=== PATIENT | female | born 1985 | race Caucasian/White ===

== ENCOUNTER → 2017-02-17 | Outpatient (REF) | payer OTHER ==
[~2017-02-17] MED LIST: ACET500T37 PO; KEFL500C7 PO; MOTR200T44 PO; PRENTAB8 PO; TYLE167L PO; TYLE325T5 PO
== END ==
LOC: M SMT 13:02
PROVIDERS: ATTEND Nurse Practitioner Women's Health
DX: N13.1 Hydronephrosis with ureteral stricture, not elsewhere classified (principal)

== ENCOUNTER → 2017-02-25 | Outpatient (CLI) | payer OTHER ==
[~2017-02-25] MED LIST changes: +ISOVUE-370 76% 100ML VIAL (Q9967) As Ordered ONE
--- NOTE | 2017-02-26 07:01 | REP ---
PRE- AND POST CONTRAST CT OF THE ABDOMEN AND PELVIS: CLINICAL: Right flank pain. TECHNIQUE: Axial pre-contrast, contrast enhanced, and delayed images of the abdomen and pelvis using 100 mL Isovue 370 intravenous contrast material with coronal and sagittal reformations. FINDINGS: Evaluation of the urinary tract system in all phases of enhancement demonstrate normal bilateral kidneys and ureters as well as normal bladder. There is no evidence for hydroureteronephrosis, perinephric stranding, nephroureterolithiasis, renal cystic or mass lesions. The collecting system on delayed images appears normal including normal bladder. Liver, spleen, pancreas, gallbladder and bilateral adrenal glands are normal. The enteric system is without obstruction or acute inflammatory process. Normal terminal ileum and appendix are identified in the right lower quadrant. Small fat containing periumbilical hernia noted. Pelvis demonstrates prominent uterus with prominent endometrial canal as well as a rim enhancing 1.2 cm right ovarian cyst with right adnexa/pelvic free fluid suggesting ruptured right hemorrhagic ovarian cyst and likely related to patient's symptoms. No ascites. No free air. No adenopathy. Vasculature is normal. Surrounding musculoskeletal structures are intact. Lung bases are clear. IMPRESSION: 1. Normal appearance to the urinary tract system. 2. Rim enhancing right ovarian cyst with adjacent free fluid extending to the deep pelvis most compatible with ruptured hemorrhagic ovarian cyst and likely related to patient's symptoms. Prominent uterus and endometrial canal is also appreciated and followup pelvic ultrasound may be warranted. 3. No further acute intra-abdominal or pelvic pathology appreciated. Unreviewed
== END ==
LOC: M RAD 10:42
PROVIDERS: ATTEND Nurse Practitioner Women's Health
DX: N13.1 Hydronephrosis with ureteral stricture, not elsewhere classified (principal)
CPT/HCPCS: 74178; Q9967

== ENCOUNTER → 2017-04-02 | Day surgery (SDC) | payer OTHER ==
[~2017-04-02] VITALS: Ht 172.7 cm; Wt 81.2 kg
[~2017-04-02] MED LIST changes: +BUPIVACAINE HCL 0.25% 30 ML VIAL As Ordered ONE; +GLYCOPYRROLATE INJ 0.2 MG/ML 2 ML VIAL As Ordered ONE; +HYDROmorphone HCL 1 MG/ML SYRINGE (J1170) IV PRN; +HYDROmorphone HCL 2 MG/ML 1ML VIAL (J1170) As Ordered ONE; -ISOVUE-370 76% 100ML VIAL (Q9967) As Ordered ONE; +KETOROLAC 60 MG/2 ML VIAL (J1885) As Ordered ONE; +LIDOCAINE 2% INJ 100 MG/5 ML SDV (FOR ANES.) As Ordered ONE; +LR 1,000 ML IV SCH; +METOCLOPRAMIDE INJ 10MG/2ML VIAL (J2765) As Ordered ONE; +METOCLOPRAMIDE INJ 10MG/2ML VIAL (J2765) IV ONE; +MIDAZOLAM INJ 2 MG/2 ML VIAL (J2250) As Ordered ONE; +NEOSTIGMINE 1MG/ML 5 ML SYRINGE (J2710) As Ordered ONE; +ONDANSETRON 4MG/2ML VIAL (J2405) As Ordered ONE; +ONDANSETRON 4MG/2ML VIAL (J2405) IV PRN; +PERCOCET 5MG/325MG TAB PO PRN; +PROPOFOL 200 MG/20 ML VIAL As Ordered ONE; +ROCURONIUM BROMIDE 50 MG/5 ML VIAL As Ordered ONE; +dexameTHASONE 4 MG/ML 1ML VIAL (J1100) As Ordered ONE; +diphenhydrAMINE INJ 50MG/ML VIAL (J1200) IV ONE; +fentaNYL 100 MCG/2 ML INJECTION (J3010) IV PRN; +fentaNYL 250 MCG/5 ML INJECTION (J3010) As Ordered ONE
[2017-04-02 08:02] LABS: CONTROL LINE HCG INT CTR LINE PRESENT
[2017-04-02 15:00] VITALS: BP 117/58
--- NOTE | 2017-04-03 18:12 | RO ---
DATE OF PROCEDURE: 04/02/2017 PREPROCEDURE DIAGNOSES: Abnormal uterine bleeding-ovulatory. Satisfied parity. POSTPROCEDURE DIAGNOSIS: Abnormal uterine bleeding-ovulatory. Satisfied parity. OPERATIVE PROCEDURE: 1. Diagnostic laparoscopy. 2. Right tubal ligation. 3. Diagnostic hysteroscopy. 4. NovaSure endometrial ablation. SURGEON: Manju Walls MD RENEWABLE ENERGY TRADER: Martha Bush MD CLINICAL SERVICE: FEED PREPARATION OPERATOR ANESTHESIA: General endotracheal anesthesia. INDICATION FOR OPERATION: Rosario Farmer is a 31-year-old G4, P3-0-1-3 with abnormal uterine bleeding-ovulatory, and satisfied parity who had a workup of her abnormal uterine bleeding with no abnormal findings, but has significant bleeding that is interfering with her quality of life. She also desires no further children and elects for sterilization. She does have a history of prior diagnosis of endometriosis with a left salpingo-oophorectomy performed. MATERIAL FOR LABORATORY: None. DESCRIPTION OF FINDINGS: Exam under anesthesia revealed an anteverted uterus of normal size, shape and contour with the left adnexa surgically absent. Right adnexa normal on palpation. Laparoscopic findings included a normal appearing uterus, right fallopian tube and ovary, appendix, liver edge and gallbladder. HYSTEROSCOPIC FINDINGS: Included a normal appearing endometrial cavity with no discrete lesions noted. INFECTION CLASSIFICATION: 2 ESTIMATED BLOOD LOSS: 5 mL IV FLUIDS: 800 mL of lactated Ringer's. URINE OUTPUT: 800 mL DESCRIPTION OF PROCEDURE: After obtaining informed consent, Rosario was taken to the operating room. General endotracheal anesthesia was established. She was placed in a low lithotomy position. Exam under anesthesia was performed with the findings noted above. She was prepped and draped in the usual sterile fashion. Kirkland catheter was placed. Beeson speculum was placed in the vagina with visualization of the cervix obtained. Anterior lip of the cervix was grasped with a single tooth tenaculum. The cervix sounded to 3.5 cm. Total uterine length 9 cm. Uterine length minus cervix was 5.5 cm. Cervix was sequentially dilated using Jc's dilators. The BonafidelGreenLancer uterine manipulator was placed into the cervix. Tenaculum was removed with site hemostasis noted and the bivalve speculum was removed. Patient was taken out of trendelenburg position and a 5 mm incision was made in the infraumbilical fold beneath the subcutaneous tissue. A Tara clamp was used to spread the subcutaneous tissue. The lower abdominal wall was manually grabbed and lifted up and an Optiview trocar was placed at a 90 degrees angle. The laparoscope was advanced through the port and intraabdominal placement was confirmed. Continuous flow carbon dioxide began to establish a pneumoperitoneum at 20 mmHg pressure. An 8 mm incision was made in the midline 2 cm above the pubic symphysis through the patient's previous Pfannenstiel scar through which an 8 mm trocar was placed under direct visualization. Pelvic and abdominal survey were conducted beginning at the anterior cul-de-sac, anterior portion of the uterus, which were normal in appearance. The left fallopian tube and ovary were surgical absent. The right fallopian tube and ovary were normal in appearance. Posterior cul-de-sac was observed to be normal. Survey of the upper abdomen revealed a normal appearing appendix and normal appearing liver edge. Filshie clip applicator was then introduced and the right fallopian tube was followed from the cornua of the uterus to the fimbriae. The Filshie clip was placed approximately 2 cm from the cornua on the right fallopian tube and placement was confirmed by visualization. Suprapubic port was removed under direct visualization and observed to be hemostatic. Pneumoperitoneum was released prior to removal of the umbilical port. Incisions were reapproximated with #4-0 Monocryl and Dermabond. We then turned our attention to the vaginal portion of the procedure. Speculum was reinserted into the vagina and the Bonafidelka uterine manipulator was removed with site hemostasis noted. Tenaculum was replaced on the anterior portion of the cervix. Uterus had previously been sounded as noted. Hysteroscopy was performed and revealed normal intrauterine cavity with no discrete lesions. NovaSure device was inserted into the uterine cavity and once deployed the width measured 4.5 cm. The power setting was 160 and the device was activated. Procedure terminated after 89 seconds without complication. The device was removed and hysteroscopy was again performed, which noted a good burn result within the intrauterine cavity and no perforation of the uterus. Tenaculum was removed. Site hemostasis was noted. Speculum was removed. She was awakened from general anesthesia in good condition and transferred to the recovery room. All counts were correct at the end of the procedure. PRISCA
== END | disposition home or self-care (01) ==
LOC: M SDC 07:07
PROVIDERS: ATTEND Obstetrics & Gynecology
DX: N92.5 Other specified irregular menstruation (principal); Z30.2 Encounter for sterilization; F41.9 Anxiety disorder, unspecified; F43.10 Post-traumatic stress disorder, unspecified; Z91.040 Latex allergy status
CPT/HCPCS: 36415; 58563; 58671; 84703; A4649; J1100; J1170; J1885; J2250; J2405; J2710; J2765; J3010

== ENCOUNTER 2018-04-03 10:02 | Day surgery (SDC) | payer OTHER ==
[2018-04-03] MEDS ORDERED: LIDOCAINE 2% INJ 100 MG/5 ML SDV (FOR ANES.) As Ordered (11:17)
[2018-04-03] MEDS ORDERED: PROPOFOL 200 MG/20 ML VIAL As Ordered ×3 (11:17→11:31)
== END 2018-04-03 13:00 | disposition home or self-care (01) ==
LOC: M OPP 10:02
DX: K64.8 Other hemorrhoids (principal); K92.1 Melena; K29.70 Gastritis, unspecified, without bleeding; G43.909 Migraine, unspecified, not intractable, without status migrainosus; N80.9 Endometriosis, unspecified; F43.12 Post-traumatic stress disorder, chronic; Z62.819 Personal history of unspecified abuse in childhood; Z79.899 Other long term (current) drug therapy; Z91.040 Latex allergy status; Z86.14 Personal history of Methicillin resistant Staphylococcus aureus infection; Z90.722 Acquired absence of ovaries, bilateral; Z98.51 Tubal ligation status; Z80.0 Family history of malignant neoplasm of digestive organs; Z83.79 Family history of other diseases of the digestive system
CPT/HCPCS: 45378

== ENCOUNTER 2018-11-24 07:01 | Inpatient (IN) | payer OTHER ==
[~2018-11-24] VITALS: Ht 175.3 cm; Wt 89.1 kg
[2018-11-24] VITALS (8 sets, daily range): BP systolic 108–123; BP diastolic 53–58
[~2018-11-24 07:01] MED LIST changes: +ACET-683 PO; +ACET500T15 PO; -ACET500T37 PO; -BUPIVACAINE HCL 0.25% 30 ML VIAL As Ordered ONE; +COLA100C5 PO; -GLYCOPYRROLATE INJ 0.2 MG/ML 2 ML VIAL As Ordered ONE; -HYDROmorphone HCL 1 MG/ML SYRINGE (J1170) IV PRN; -HYDROmorphone HCL 2 MG/ML 1ML VIAL (J1170) As Ordered ONE; +IBUP200C25 PO; +KEFL500C17 PO; -KEFL500C7 PO; -KETOROLAC 60 MG/2 ML VIAL (J1885) As Ordered ONE; -LIDOCAINE 2% INJ 100 MG/5 ML SDV (FOR ANES.) As Ordered ONE; -LR 1,000 ML IV SCH; -METOCLOPRAMIDE INJ 10MG/2ML VIAL (J2765) As Ordered ONE; -METOCLOPRAMIDE INJ 10MG/2ML VIAL (J2765) IV ONE; -MIDAZOLAM INJ 2 MG/2 ML VIAL (J2250) As Ordered ONE; +MULT1TAB10 PO; -NEOSTIGMINE 1MG/ML 5 ML SYRINGE (J2710) As Ordered ONE; -ONDANSETRON 4MG/2ML VIAL (J2405) As Ordered ONE; -ONDANSETRON 4MG/2ML VIAL (J2405) IV PRN; +PANT40TA3 PO; -PERCOCET 5MG/325MG TAB PO PRN; -PROPOFOL 200 MG/20 ML VIAL As Ordered ONE; -ROCURONIUM BROMIDE 50 MG/5 ML VIAL As Ordered ONE; +VITA500T PO; -dexameTHASONE 4 MG/ML 1ML VIAL (J1100) As Ordered ONE; -diphenhydrAMINE INJ 50MG/ML VIAL (J1200) IV ONE; -fentaNYL 100 MCG/2 ML INJECTION (J3010) IV PRN; -fentaNYL 250 MCG/5 ML INJECTION (J3010) As Ordered ONE
[2018-11-24 07:29] LABS: HEMATOCRIT 39.6 % (36.0-47.0)
[2018-11-24] MEDS ORDERED: ceFAZolin 2 GM/D5W 50 ML IV BAG (J0690 PER 500MG) As Ordered ONE (07:34)
[2018-11-24] MEDS ORDERED: BUPIVACAINE HCL 0.25% 30 ML VIAL As Ordered ONE (07:36)
[2018-11-24 07:48] LABS: HCG, SERUM QUALITATIVE NEGATIVE (NEGATIVE)
[2018-11-24] MEDS ORDERED: LR 1,000 ML IV ONE (08:30)
[2018-11-24] MEDS ORDERED: SCOPOLAMINE 1MG TRANSDERMAL PATCH As Ordered ONE (08:49)
[2018-11-24] MEDS ORDERED: ROCURONIUM BROMIDE 50 MG/5 ML VIAL As Ordered ONE (09:03)
[2018-11-24] MEDS ORDERED: MIDAZOLAM INJ 2 MG/2 ML VIAL (J2250) As Ordered ONE (09:03)
[2018-11-24] MEDS ORDERED: fentaNYL 100 MCG/2 ML INJECTION (J3010) As Ordered ONE ×2 (09:03→10:39)
[2018-11-24] MEDS ORDERED: PROPOFOL 200 MG/20 ML VIAL As Ordered ONE (09:03)
[2018-11-24] MEDS ORDERED: LIDOCAINE 2% INJ 100 MG/5 ML SDV (FOR ANES.) As Ordered ONE (09:03)
[2018-11-24] MEDS ORDERED: SCOPOLAMINE 1MG TRANSDERMAL PATCH TOP ONE (09:15)
[2018-11-24] MEDS ORDERED: dexameTHASONE 4 MG/ML 1ML VIAL (J1100) As Ordered ONE (09:40)
[2018-11-24] MEDS ORDERED: KETAMINE HCL 200 MG/20 ML VIAL As Ordered ONE (10:01)
[2018-11-24] MEDS ORDERED: METHYLENE BLUE 0.5% (5MG/ML) 10 ML AMP (PROVAYBLUE)(Q9968 PER 1MG) As Ordered ONE (10:23)
[2018-11-24] MEDS ORDERED: ONDANSETRON 4MG/2ML VIAL (J2405) As Ordered ONE (13:50)
[2018-11-24] MEDS ORDERED: KETOROLAC 30 MG/ML VIAL (J1885) IV PRN (14:15)
[2018-11-24] MEDS ORDERED: PERCOCET 5MG/325MG TAB PO PRN ×2 (14:15→14:45)
[2018-11-24] MEDS ORDERED: ONDANSETRON 4MG/2ML VIAL (J2405) IV PRN ×2 (14:15→14:45)
[2018-11-24] MEDS ORDERED: fentaNYL 100 MCG/2 ML INJECTION (J3010) IV PRN (14:45)
[2018-11-24] MEDS ORDERED: LR 1,000 ML IV SCH (14:45)
[2018-11-24] MEDS ORDERED: MORPHINE 10 MG/ML 1ML VIAL (J2270) IV PRN (14:45)
[2018-11-24] MEDS: PERCOCET 5MG/325MG TAB PO PRN ×2 (15:45→16:20)
--- NOTE | 2018-11-24 16:20 | REP ---
Right elbow: Four views obtained portably. History: Postop. Findings: Four views of the right elbow demonstrate normal alignment of the ulnotrochlear and radiocapitellar articulation. There is no evidence of joint effusion. No fractures seen. Impression: Negative views of the right elbow. Electronically Signed by Pascual Lawrence MD 11/24/2018 04:11 P
--- NOTE | 2018-11-24 17:03 | REP ---
Right humerus: Two views. History: Postop. Findings: Two views of the right humerus obtained portably demonstrate no acute bony abnormality. No fracture or subluxation is seen. Impression: Negative radiographs of the right humerus obtained portably. Electronically Signed by Pascual Lawrence MD 11/24/2018 04:54 P
[2018-11-24] MEDS: LR 1,000 ML IV SCH ×2 (17:20→23:00)
--- NOTE | 2018-11-24 18:13 | REP ---
Right forearm: Two views obtained portably: History: Postop. Findings: AP and lateral portably obtained views of the forearm demonstrate no evidence of fracture or subluxation. Impression: No acute bony abnormality. Electronically Signed by Pascual Lawrence MD 11/24/2018 08:41 P
[2018-11-24] MEDS: DOCUSATE SODIUM 100 MG CAP PO SCH (21:25)
[2018-11-24] MEDS: PHENAZOPYRIDINE 100 MG TAB PO SCH (21:25)
[2018-11-25 04:00] VITALS: BP 109/54
[2018-11-25] MEDS: LR 1,000 ML IV SCH (06:08)
[2018-11-25 07:45] LABS: BASO % 0.1 % (0.0-1.0); EOS % 0.1 % (0.0-3.0); HEMATOCRIT 32.9 % (36.0-47.0); LYMPH % 17.7 % (24.0-44.0); MEAN CORPUSCULAR HEMOGLOBIN 29.2 pg (27.0-33.0); MEAN CORPUSCULAR HGB CONC 32.2 g/dl (32.0-36.5); MEAN CORPUSCULAR VOLUME 90.6 fl (80.0-96.0); MONO # 0.7 10^3/uL (0.0-0.8); NEUTROPHILS # 8.6 10^3/uL (1.8-7.7); NEUTROPHILS % 75.6 % (36.0-66.0); PLATELET COUNT, AUTOMATED 285 10^3/uL (150-450); RED BLOOD COUNT 3.63 10^6/uL (4.00-5.40); WHITE BLOOD COUNT 11.4 10^3/uL (4.0-10.0)
[2018-11-25 07:46] LABS: HEMOGLOBIN 10.6 g/dl (12.0-15.5)
[2018-11-25 08:00] VITALS: BP 123/67
--- NOTE | 2018-11-25 08:27 | IPNPDOC ---
Text Note Date of Service The patient was seen on 11/25/18. NOTE Post-op day 1 Rosario Farmer is a 33yo F doing well on POD 1 s/p LAVH with right salpingectomy and cystoscopy. During the procedure a suture was noted in the bladder on cystoscopy which was corrected by taking down the vaginal cuff and re-suturing it, with repeat cystoscopy then showing no suture present in the bladder. Dr. Ho was consulted intra-operatively and recommended continuing upton for 1 week after surgery as a preventative measure. She also woke up after surgery having only right arm pain with certain motions, has slight numbness in her left pointer finger (where pulse ox was during surgery)- another physician ordered xrays of her arm which were all normal. Rosario Farmer notes her arm pain is very much improved today and she has near full motility (hurts to hyperextend but can fully flex without issue). Upton in place draining orange (pyridium) urine. She ambulated once in her room this morning without issue. Tolerated clear liquids and hungry for breakfast. No vaginal bleeding. No f/c/n/v/CP/SOB. Vitals wnl, afebrile General: WDWN, sitting in bed resting comfortably Abdomen: soft, appropriately tender to palpation, 3 trocar sites without erythema/induration and dermabond overlying Extremities: no edema of BLE, right arm with no gross abnormality Labs: 2/5 H/H 13/39.6 2/6 H/H 10.6/32.9 Assessment: Rosario Farmer is a 33yo F doing well on POD 1 s/p LAVH with right salpingectomy and cystoscopy. Right arm pain is resolving, she has nearly no abdominal pain. Vitals wnl, benign exam. Good UOP. Appropriate change in H/H. He modynamically stable with no e/o infection. Plan: -Discharge to home today with upton -Pt needs discharge teaching regarding upton care as well as supplies for leg bag. She will walk in to clinic with me next Friday to remove upton. -Home meds Rx'd to [facility] and discussed fully with patient: percocet and ibuprofen prn pain, colace for bowel regimen, bactrim for ppx and pyridium to prevent bladder spasm -Discussed return precautions: fevers/chills, increasing abdominal pain, abnormal vaginal discharge or heavy vaginal bleeding, anything else concerning -Discussed activity limitations, no heavy lifting greater than full jug of milk and total vaginal rest -Regular diet Dr. Manju Haro MD VS,Charli, I+O VS, Charli, I+O Vital Signs Date Time Temp Pulse Resp B/P (MAP) Pulse Ox O2 Delivery O2 Flow Rate FiO2 11/25/18 04:00 98.6 60 16 109/54 (72) 96 11/24/18 17:00 Room Air 11/24/18 14:45 2 I&O- Last 24 Hours up to 6 AM 11/25/18 06:00 Intake Total 3045 ml Output Total 1370 ml Balance 1675 ml Manju Haro MD Nov 25, 2018 07:28
--- NOTE | 2018-11-25 08:33 | DS.PDOC ---
Discharge Summary General Date of Admission Nov 24, 2018 at 07:01 Date of Discharge Nov 25, 2018 Attending Physician: Manju Haro MD Discharge Summary PROCEDURES PERFORMED DURING STAY: LAVH, right salpingectomy, cystoscopy ADMITTING DIAGNOSES: 1. AUB-HMB with failed endometrial ablation, dysmenorrhea, adenomyosis DISCHARGE DIAGNOSES: 1. AUB-HMB with failed endometrial ablation, dysmenorrhea, adenomyosis COMPLICATIONS/CHIEF COMPLAINT: Severe Dysmenorrhea, Adenomyosis. HISTORY OF PRESENT ILLNESS/HOSPITAL COURSE: Rosario Farmer is a 33yo F doing well on POD 1 s/p LAVH with right salpingectomy and cystoscopy. During the procedure a suture was noted in the bladder on cystoscopy which was corrected by taking down the vaginal cuff and re-suturing it, with repeat cystoscopy then showing no suture present in the bladder. Dr. Ho was consulted intra-operatively and recommended continuing upton for 1 week after surgery as a preventative measure. She also woke up after surgery having only right arm pain with certain motions, has slight numbness in her left pointer finger (where pulse ox was during surgery)- another physician ordered xrays of her arm which were all normal. Rosario Farmer notes her arm pain is very much improved today and she has near full motility (hurts to hyperextend but can fully flex without issue). Upton in place draining orange (pyridium) urine. At time of discharge, vitals were wnl, benign exam. Good UOP. Appropriate change in H/H. Hemodynamically stable with no e/o infection. She feels ready for discharge home. DISCHARGE MEDICATIONS: Please see below. ALLERGIES: Please see below. PHYSICAL EXAMINATION ON DISCHARGE: Vitals wnl, afebrile General: WDWN, sitting in bed resting comfortably Abdomen: soft, appropriately tender to palpation, 3 trocar sites without erythema/induration and dermabond overlying Extremities: no edema of BLE, right arm with no gross abnormality LABORATORY DATA: Labs: 2/5 H/H 13/39.6 2/6 H/H 10.6/32.9 IMAGING: right arm x-rays show no bony abnormality ACTIVITY: vaginal rest 6 weeks, no heavy lifting DIET: regular DISPOSITION: Home DISCHARGE PLAN/INSTRUCTIONS: -Discharge to home today with upton -Pt needs discharge teaching regarding upton care as well as supplies for leg bag. She will walk in to clinic with me next Friday to remove upton. -Home meds Rx'd to [facility] and discussed fully with patient: percocet and ibuprofen prn pain, colace for bowel regimen, bactrim for ppx and pyridium to prevent bladder spasm -Discussed return precautions: fevers/chills, increasing abdominal pain, abnormal vaginal discharge or heavy vaginal bleeding, anything else concerning -Discussed activity limitations, no heavy lifting greater than full jug of milk and total vaginal rest DISCHARGE CONDITION: Stable TIME SPENT ON DISCHARGE: Greater than [address] Manju Haro MD Vital Signs/I&Os Vital Signs Date Time Temp Pulse Resp B/P (MAP) Pulse Ox O2 Delivery O2 Flow Rate FiO2 11/25/18 04:00 98.6 60 16 109/54 (72) 96 11/24/18 17:00 Room Air 11/24/18 14:45 2 I&O- Last 24 Hours up to 6 AM 11/25/18 06:00 Intake Total 3045 ml Output Total 1370 ml Balance 1675 ml Laboratory Data Labs 24H Laboratory Tests 2 11/25/18 06:55: Immature Granulocyte % (Auto) 0.5, White Blood Count 11.4H, Red Blood Count 3.63L, Hemoglobin 10.6#L, Hematocrit 32.9L, Mean Corpuscular Volume 90.6, Mean Corpuscular Hemoglobin 29.2, Mean Corpuscular Hemoglobin Concent 32.2, Red Cell Distribution Width 13.3, Platelet Count 285, Neutrophils (%) (Auto) 75.6H, Lymphocytes (%) (Auto) 17.7L, Monocytes (%) (Auto) 6.0H, Eosinophils (%) (Auto) 0.1, Basophils (%) (Auto) 0.1, Neutrophils # (Auto) 8.6H, Lymphocytes # (Auto) 2.0, Monocytes # (Auto) 0.7, Eosinophils # (Auto) 0.0, Basophils # (Auto) 0.0, Nucleated Red Blood Cells % (auto) 0.0 CBC/BMP Laboratory Tests 11/25/18 06:55 Red Blood Count 3.63 L, Mean Corpuscular Volume 90.6, Mean Corpuscular H emoglobin 29.2, Mean Corpuscular Hemoglobin Concent 32.2, Red Cell Distribution Width 13.3, Neutrophils (%) (Auto) 75.6 H, Lymphocytes (%) (Auto) 17.7 L, Monocytes (%) (Auto) 6.0 H, Eosinophils (%) (Auto) 0.1, Basophils (%) (Auto) 0.1, Neutrophils # (Auto) 8.6 H, Lymphocytes # (Auto) 2.0, Monocytes # (Auto) 0.7, Eosinophils # (Auto) 0.0, Basophils # (Auto) 0.0 Discharge Medications Scheduled Ascorbic Acid (Vitamin C) 500 Mg Tab, 500 MG PO DAILY, (Reported) Multivitamins (Multivitamin Adults) 1 Tab Tab, 1 TAB PO DAILY, (Reported) Scheduled PRN Acetaminophen (Acetaminophen) 500 Mg Tab, 1,000 MG PO Q6HP PRN for PAIN, (Reported) Ibuprofen (Ibuprofen) 200 Mg Cap, 800 MG PO DAILYPRN PRN for PAIN, (Reported) Allergies Coded Allergies: Latex (Verified Allergy, Intermediate, RASH & HIVES, 11/24/18) Manju Haro MD Nov 25, 2018 08:31
[2018-11-25] MEDS: PHENAZOPYRIDINE 100 MG TAB PO SCH (08:46)
[2018-11-25] MEDS: DOCUSATE SODIUM 100 MG CAP PO SCH (08:46)
[2018-11-25] MEDS ORDERED: BACTRIM 160MG/800MG DS TAB PO SCH (09:00)
[2018-11-25] MEDS ORDERED: BACT800T5 PO (09:26)
[2018-11-25] MEDS ORDERED: COLA100C5 PO (09:26)
[2018-11-25] MEDS ORDERED: PYRI1TAB5 PO (09:26)
[2018-11-25] MEDS ORDERED: OXYC1TAB23 PO ×2 (09:26)
--- NOTE | 2018-11-26 14:40 | RO ---
DATE OF PROCEDURE: 11/24/2018 SURGEON: Manju Haro MD ROUTE SALESPERSON: Dr. Dino Jimenze INDICATIONS FOR OPERATION: Neena is a 33-year-old G4, P3-0-1-3 with a history of abnormal uterine bleeding, heavy menstrual bleeding that was addressed previously with a NovaSure endometrial ablation, however, after the procedure she had significant life altering dysmenorrhea and on ultrasound there was evidence of adenomyosis. The patient strongly desired definitive management with hysterectomy. PREOPERATIVE DIAGNOSIS: Abnormal uterine bleeding/heavy menstrual bleeding, dysmenorrhea, adenomyosis. POSTOPERATIVE DIAGNOSIS: Abnormal uterine bleeding/heavy menstrual bleeding, dysmenorrhea, adenomyosis. MATERIAL FORWARDED TO THE LAB FOR EXAMINATION: 1. Right fallopian tube with clip. 2. Uterus and cervix. DESCRIPTION OF FINDINGS: The uterus was boggy in appearance. The left ovary was surgically absent from a prior left salpingo-oophorectomy (LSO) that she had when she was younger. Right fallopian tube is interrupted by the clip, otherwise normal in appearance. The right ovary did not appear very robust, is someone shriveled in appearance. She has had no hormonal issues so it is clearly providing good hormonal effect for her but it was not a robust appearing ovary. Appendix was not visualized during the procedure but liver edge and the inferior pole of the gallbladder were normal in appearance. On cystoscopy after closure of the vaginal cuff we did note a suture present in the bladder and so I called Dr. Ho, Urologist, intraoperatively and we discussed taking down the vaginal cuff to remove that stitch and then re-sewing it and I performed cystoscopy after that the stitch was removed. There was no bleeding in the bladder all and no further issues. There were jets noted from both ostia in the cystoscopy. INFECTION CLASSIFICATION: 2. ESTIMATED BLOOD LOSS: 200 mL. IV FLUIDS: 1500 millimeters of lactated Ringer. URINE OUTPUT: 1000 mL of yellow clear urine that was green tinged at the end of the procedure after she was given methylene blue for cystoscopy. OPERATION PERFORMED: Laparoscopic-assisted vaginal hysterectomy, right salpingectomy and cystoscopy. DESCRIPTION OF OPERATION: The patient was taken to the operating room. Bilateral sequential compression devices (SCDs) were placed. She received general endotracheal anesthesia and was prepped and draped in normal sterile fashion in low lithotomy position. She did receive 2 grams of IV Ancef prophylactically. Time-out was performed to confirm patient name, date of , procedure and indications, the team was all in agreement. Kirkland catheter was placed. Lyndora speculum was placed in the vagina and the anterior lip of cervix was grasped with a single-tooth tenaculum. A VCare uterine manipulator was introduced after the anterior lip of the cervix was stitched using #0 Vicryl and the suture was tied down to the uterine manipulator, uterus sounded to 7 cm. The single-tooth tenaculum had been removed and hemostasis. Lyndora speculum was removed from the vagina. 5 mm incision was made with a scalpel in the infraumbilical fold after anesthetizing with 0.25% Marcaine. Tara clamp was used to spread the subcutaneous tissue. The lower abdominal wall was manually grabbed and lifted up and OptiVu trocar was placed at a 45 degrees angle. The laparoscope was advanced through the port and intra-abdominal placement was confirmed. Continuous slow carbon dioxide began to establish a pneumoperitoneum at 15 mmHg pressure. Observation below that area of entry revealed no injury. After doing an general inspection we placed two more ports after anesthetizing with 0.25% Marcaine, these were both 5 mm in size and they were placed under direct visualization in the right lower quadrant and left lower quadrant symmetrically. We then did a more thorough pelvic and abdominal survey beginning at the anterior cul-de-sac to the posterior cul-de-sac. There was some scant filmy adhesions in the left aspect of the posterior cul-de-sac, but nothing significant. We then removed the right fallopian tube using the LigaSure device, it came out in two pieces given that had been transected previously with a Filshie clip. We placed the Filshie clip in the posterior cul-de-sac and it was removed later on in the procedure actually up through the 5-mm port and those were all sent together as one specimen. We then transected the right broad ligament using the LigaSure. We had identified the ureters on both sides which were for vermiculating adequately. The utero-ovarian ligament was transected using the LigaSure and then the anterior leaf of the broad ligament was opened and we skeletonized the uterine arteries and actually coagulated them using the LigaSure. We continued this down all the way to the cup of the VCare which we could palpate internally. We performed the right sided portion of the bladder flap using the LigaSure and using traction as well and then that whole same procedure was done on the left side. Hemostasis was noted. Once adequate hemostasis was noted along all pedicles and the pelvis we performed the colpotomy using a right-angle laparoscopic hook making the colpotomy around the inner cup of the VCare. There was hemostasis noted. The uterus and cervix were removed with the uterine manipulator out through the vagina and the pneumoperitoneum was released, but all trocars remained in place. The patient was placed in high lithotomy position at that point and a weighted speculum was placed in the vagina. She had actually very redundant vaginal tissue and a very long vaginal canal so repair the vaginal cuff was extremely difficult just given the technical aspect of the procedure. However, it was repaired in entirety vertically using a running locking stitch of #0 Vicryl and attempting to plicate the uterosacral ligaments. The vagina copiously irrigated. Hemostasis was noted at that point. All instruments were removed from the vagina. We then completed cystoscopy. She had previously been given methylene blue by the anesthesia provider and we noted bilateral ureteral jets even though there was not very darkly stained methylene blue urine at that point, but there was definite jets, however, the and anatomy did not look exactly normal so I did continue to fill the bladder and as it filled observing very closely I then noted an area where there was a small pucker or almost like a pinning down and as the bladder filled I was actually able to see a dark blue suture presumably from the closure of the vaginal cuff and so at that point I let all of the fluid out, replaced the Kirkland catheter and discussed with Dr. oH over the phone taking down the vaginal cuff and how he would manage this situation. He did pop into the operating room (OR) briefly and looked at the cystoscopy images that were up on the computer screen and still maintained the same plan to take down the vaginal cuff and reexamine and then he recommended sending the patient home with a Kirkland catheter for 1 week, it is very conservative management he noted but better than that she potentially develop a fistula, so we then went back to the vagina and took down all of the sutures along the vaginal cuff removing them all in their entirety and then actually re-cystoed and noted no stitch in the bladder, replaced Kirkland catheter, went back to the vagina, sutured the vaginal cuff again vertically, this time being very, very, very cautious in the area of the bladder, even though she had extensive redundant tissue and it was technically difficult again we were very cautious and performed the closure this time using interrupted sutures using #0 Vicryl potentially we had to remove a stitch it would be easier than removing a whole suture line. So after the vaginal cuff was completely repaired we again performed cystoscopy and noted no sutures in the bladder bubble up at that the top of the dome and still vermiculating good efflux from the UOs. At that point I replace the Kirkland, copiously irrigated the vagina. All instruments had been removed. Turned my attention back up to the abdomen after re-gloving and reinsufflated observed the cuff to be completely hemostatic and placed some Sulaiman along the cuff again noting absolutely no bleeding and so after this the lateral ports were removed under direct visualization followed by the umbilical port site. The pneumoperitoneum had been released prior. The port sites were re-approximated with #4-0 Monocryl suture and then Dermabond overlying. Hemostasis was noted at all of the incision sites. The patient was taken out of lithotomy position. All counts were correct times two. The patient was awakened from general anesthesia and she was taken to the recovery room in stable condition. I talked to her right at the procedure and discussed why the procedure took longer given the bladder stitch that had to be removed and the vaginal cuff that had to be re-sewn and then discussed with her that evening in her room at which time she was doing well. She will be kept with a Kirkland for 7 days. We will take down of the clinic in a week and she is going to be on Bactrim once daily for prophylaxis as well as she was given Pyridium for bladder spasms.
== END 2018-11-25 11:15 | disposition home or self-care (01) | DRG 743 ==
LOC: M OR 07:01 → M PED 17:10
PROVIDERS: ADMIT Obstetrics & Gynecology; ATTEND Obstetrics & Gynecology
PROC: 0UT9FZZ Resection of Uterus, Via Natural or Artificial Opening With Percutaneous Endoscopic Assistance (ICD-10-PCS; principal; 2018-11-24 08:40)
PROC: 0UTC4ZZ Resection of Cervix, Percutaneous Endoscopic Approach (ICD-10-PCS; 2018-11-24 08:40)
PROC: 0UT54ZZ Resection of Right Fallopian Tube, Percutaneous Endoscopic Approach (ICD-10-PCS; 2018-11-24 08:40)
DX: N80.0 Endometriosis of uterus (principal); N94.6 Dysmenorrhea, unspecified